=== PATIENT | female | born 1935 | race Caucasian/White ===

== ENCOUNTER 2022-12-28 23:51 | Inpatient (IN) | payer OTHER ==
[~2022-12-28] VITALS: Ht 157.5 cm; Wt 48.5 kg
--- NOTE | 2022-12-29 00:10 | NUR ---
[facility] FROM [facility] C/C COFFEE GROUND EMESIS X1 1HR AGO. PT IS AOX0. OPENS EYES, WITHDRAWS TO PAIN BUT NOT RESPONDING TO VERBAL COMMAND. ATTACHED TO MONITOR. VITALS CHECKED.
--- NOTE | 2022-12-29 00:15 | NUR ---
EKG DONE AT BEDSIDE
[2022-12-29] MEDS ORDERED: PANTOPRAZOLE 40 MG VIAL ONE (00:16)
[2022-12-29] MEDS ORDERED: ONDANSETRON HCL/PF 4 MG/2 ML VIAL ONE (00:16)
[2022-12-29] MEDS ORDERED: IV NS 0.9% 500 ML BAG IV ONE (00:30)
[2022-12-29] MEDS ORDERED: PANTOPRAZOLE 40 MG VIAL IV ONE (00:30)
[2022-12-29] MEDS ORDERED: ONDANSETRON HCL/PF 4 MG/2 ML VIAL IVP ONE (00:30)
--- NOTE | 2022-12-29 00:40 | NUR ---
COVID SWAB DONE AND SENT TO LAB
--- NOTE | 2022-12-29 00:40 | NUR ---
IV NERY G20 INSERTED ON LEFT UPPER ARM. BLOOD DRAWN AND SENT TO LAB
--- NOTE | 2022-12-29 00:40 | NUR ---
XRAY DONE AT BEDSIDE
[2022-12-29 00:49] LABS: BASOPHILS # (AUTO) 0.1 K/uL (0.0-0.2); BASOPHILS % (AUTO) 0.8 % (0.0-2.0); EOSINOPHILS % (AUTO) 0.8 % (0.0-6.0); HEMATOCRIT 41 % (33-45); HEMOGLOBIN 13.3 g/dL (11.5-14.8); LYMPHOCYTES # (AUTO) 1.4 K/uL (0.8-4.8); LYMPHOCYTES % (AUTO) 12.7 % (20.0-44.0); MEAN CORPUSCULAR HGB CONC 33 g/dl (31.0-36.0); MEAN CORPUSCULAR VOLUME 90 fL (82-100); MONOCYTES # (AUTO) 0.5 K/uL (0.1-1.30); MONOCYTES % (AUTO) 4.8 % (2.0-12.0); NEUTROPHILS # (AUTO) 9.1 K/uL (1.8-8.9); NEUTROPHILS % (AUTO) 80.9 % (43.0-81.0); PLATELET COUNT (AUTO) 287 K/uL (150-450); RED BLOOD CELL COUNT(AUTO) 4.52 MIL/uL (4.0-5.2); WHITE BLOOD COUNT (AUTO) 11.3 K/uL (4.3-11.0)
[2022-12-29 01:11] LABS: ALANINE AMINOTRANSFERASE 40 U/L (12-78); ALBUMIN 3.2 g/dL (3.4-5.0); ALKALINE PHOSPHATASE 97 U/L (46-116); ASPARTATE AMINOTRANSFERASE 25 U/L (15-37); BILIRUBIN,DIRECT 0.2 mg/dL (0.0-0.2); BILIRUBIN,TOTAL 0.8 mg/dL (0.2-1.0); CALCIUM, SERUM 9.6 mg/dL (8.5-10.1); CARBON DIOXIDE 28 mmol/L (21-32); CHLORIDE 103 mmol/L (98-107); CREATININE 1.1 mg/dL (0.6-1.3); GLUCOSE 257 mg/dL (74-106); LIPASE 15 U/L (73-393); POTASSIUM 4.1 mmol/L (3.5-5.1); SODIUM SERUM 141 mmol/L (136-145); TOTAL PROTEIN, SERUM 7.6 g/dL (6.4-8.2); UREA NITROGEN, BLOOD 52 mg/dL (7-18)
[2022-12-29 01:17] LABS: EOSINOPHILS % (MANUAL) 1 % (0-4); LYMPHOCYTES % (MANUAL) 16 % (16-48); MONOCYTES % (MANUAL) 4 % (0-11.0); NEUTROPHILS % (MANUAL) 79 (42-76)
--- NOTE | 2022-12-29 01:51 | NUR ---
URINE SPECIMEN SENT TO LAB
[2022-12-29 02:09] LABS: BILIRUBIN,URINE NEGATIVE (NEGATIVE); COLOR,URINE YELLOW (YELLOW); LEUKOCYTE ESTERASE ,URINE TRACE (NEGATIVE); NITRITE, URINE NEGATIVE (NEGATIVE); PROTEIN,URINE TRACE mg/dl (NEGATIVE); UGLUCOSE TRACE mg/dL (NEGATIVE); UROBILINOGEN,URINE 0.2 EU/dL (0.2)
[2022-12-29 02:29] LABS: BACTERIA,URINE Few /HPF (None Seen); RBC,URINE NONE SEEN /HPF (0-2); SQUAMOUS EPITHELIAL CELL,UR None Seen /HPF (None Seen); WBC,URINE 0-2 /HPF (0-3); YEAST,URINE Few /HPF (None Seen)
[2022-12-29 02:30] LABS: MUCUS,URINE Few /LPF (None Seen)
[2022-12-29] MEDS ORDERED: IOHEXOL-300 100 ML VIAL IV ONE (02:52)
[2022-12-29] MEDS ORDERED: CT SWABBABLE VALVE TRANS SET 1 EA INFUS.SET MC ONE (02:52)
[2022-12-29] MEDS ORDERED: IV NS 0.9% 250 ML IV ONE (02:52)
--- NOTE | 2022-12-29 02:58 | NUR ---
BROUGHT TO CT DEPT
[2022-12-29] MEDS ORDERED: Z GUARD REMEDY 4 OZ OINT TP PRN (03:00)
[2022-12-29] MEDS ORDERED: ACETAMINOPHEN 325 MG TABLET PO PRN (03:00)
[2022-12-29] MEDS ORDERED: MAGNESIUM HYDROXIDE 30 ML UDC PO PRN (03:00)
[2022-12-29] MEDS ORDERED: PANTOPRAZOLE 40 MG VIAL IV SCH (03:00)
[2022-12-29] MEDS ORDERED: ONDANSETRON HCL/PF 4 MG/2 ML VIAL IVP PRN (03:00)
--- NOTE | 2022-12-29 04:03 | NUR ---
REPORT GIVEN TO FARAZ DIXON
--- NOTE | 2022-12-29 04:50 | NUR ---
TRANSFERRED TO ROOM VIA ACLS PROTOCOL
--- NOTE | 2022-12-29 05:00 | NUR ---
RN NOTES ADMITTED A 87 Y/O MALE PATIENT FROM ER VIA [facility] WITH DX GI BLEED. VITAL SIGNS TAKEN AND RECORDED AFEBRILE. ON ROOM AIR SATING 96% NO SOB NOT ON RESPIRATORY DISTRESS. SAFELY TRANSFER TO BED. COMPLETE BODY ASSESSMENT DONE. WITH IV ACCESS AT [facility] # 20 PATENT FLSUHES WELL. WITH GT INTACT FLUSHES WELL. ALL SAFETY MEASURES IN PLACE HOOKED TO DEPUTY CHIEF EXECUTIVE. WILL CLOSELY MONITHOR THE PATIENT
[2022-12-29] MEDS: IV 1/2NS 1000 ML 1,000 ML IV PRN ×2 (05:03→21:28)
--- NOTE | 2022-12-29 06:37 | NUR ---
RN NOTES PATIENT REMAINS STABLE NO SIGNIFICANT CHANGES. PATIENT REMAINS STABLE. WILL ENDORSED TO MORNING SHIFT FOR COBY
--- NOTE | 2022-12-29 07:00 | NUR ---
RECEIVED PATIENT REPORT FROM NIGHTSHIFT RN. PATIENT ASLEEP BREATHING EVENLY AND UNLABORED ON ROOM AIR. SINUS RYTHYM ON COIL WINDING SUPERVISOR. IV ACCESS MAINTAINED. PUREWICK ATTACHED. SAFETY MEASURES IMPLEMENTED, WILL CONTINUE PLAN OF CARE AND ANTICIPATE NEEDS.
[2022-12-29 08:00] VITALS: BP 127/68
[2022-12-29] MEDS: PANTOPRAZOLE 40 MG VIAL IV SCH ×2 (08:12→21:26)
[2022-12-29] MEDS ORDERED: BENA10TA74 GT (08:20)
[2022-12-29] MEDS ORDERED: ONDA4TAB5 GT (08:20)
[2022-12-29] MEDS ORDERED: NUT.250L18 GT (08:20)
[2022-12-29] MEDS ORDERED: ACET-868 GT (08:20)
[2022-12-29] MEDS ORDERED: INSU100V7 SQ (08:20)
[2022-12-29] MEDS ORDERED: MEMA10TA56 GT (08:20)
[2022-12-29] MEDS ORDERED: BISA10SU11 RC (08:20)
[2022-12-29] MEDS ORDERED: BISO5TAB20 GT (08:20)
[2022-12-29] MEDS ORDERED: DONE10TA11 GT (08:20)
[2022-12-29] MEDS ORDERED: FERR300L GT (08:20)
[2022-12-29] MEDS ORDERED: NA P133E RC (08:20)
[2022-12-29] MEDS ORDERED: MULT-24 GT (08:20)
[2022-12-29] MEDS ORDERED: INSU100V3 SQ (08:20)
[2022-12-29] MEDS ORDERED: FAMO20TA8 GT (08:20)
[2022-12-29] MEDS ORDERED: MAGN400O6 GT (08:20)
[2022-12-29] MEDS ORDERED: DEXTROSE 50%-WATER 50 ML DISP.SYRIN IV PRN (10:30)
[2022-12-29 12:00] VITALS: BP 128/46
[2022-12-29] MEDS: BLOOD SUGAR DIAGNOSTIC 1 EACH STRIP IN SCH ×2 (12:19→17:21)
--- NOTE | 2022-12-29 12:21 | NUR ---
PRN INSULIN HELD. PATIENT IS NOT RECEIVING TUBE FEEDINGS AT THIS TIME, PROVIDER AWARE.
[2022-12-29 16:00] VITALS: BP 100/46
[2022-12-29 18:21] LABS: HEMOGLOBIN 10.4 g/dL (11.5-14.8)
--- NOTE | 2022-12-29 18:38 | NUR ---
PATIENT LEFT UNIT TO UNDERGO EGD WITH SURGERY TEAM
--- NOTE | 2022-12-29 18:58 | NUR ---
PATIENT CURRENTLY IN OPERATING ROOM. HAND OFF TO BE GIVEN TO DESTINY RUTH FOR CONTINUATION OF CARE.
--- NOTE | 2022-12-29 19:30 | NUR ---
RN NOTES RECEIVED REPORT FROM MORNING RN. PATIENT AT OR FOR HER EGD.
[2022-12-29 20:00] VITALS: BP 121/74
--- NOTE | 2022-12-29 20:05 | NUR ---
RN NOTES PATIENT BACK FROM OR. STILL ON IV ACCESS AT [facility] # 20 PATENT RUNNING 1/2 NS @ 75 CC/HR. GT PATENT STILL ON NPO. ALL SAFETY MEASURES IN PLACE AT ALL TIMES. HOB ELEVATED. CALL LIGHT WITHIN REACH. WILL CLOSELY WITHIN REACH
[2022-12-29] MEDS ORDERED: ANESTHESIA TRAY IN PYXIS 1 EA TRAY MC ONE (20:21)
[2022-12-30] VITALS: BP 125/74
[2022-12-30] MEDS: BLOOD SUGAR DIAGNOSTIC 1 EACH STRIP IN SCH ×5 (01:16→23:28)
[2022-12-30 04:00] VITALS: BP 138/43
--- NOTE | 2022-12-30 06:47 | NUR ---
RN NOTES PATIENT REMAINS STABLE NO SIGNIFICANT CHANGES. PATIENT REMAINS STABLE. WILL ENDORSED TO MORNING SHIFT FOR COBY
[2022-12-30 07:06] LABS: BASOPHILS # (AUTO) 0.1 K/uL (0.0-0.2); BASOPHILS % (AUTO) 0.9 % (0.0-2.0); EOSINOPHILS % (AUTO) 5.2 % (0.0-6.0); HEMATOCRIT 29 % (33-45); HEMOGLOBIN 9.5 g/dL (11.5-14.8); LYMPHOCYTES # (AUTO) 1.4 K/uL (0.8-4.8); LYMPHOCYTES % (AUTO) 22.4 % (20.0-44.0); MEAN CORPUSCULAR HGB CONC 32 g/dl (31.0-36.0); MEAN CORPUSCULAR VOLUME 92 fL (82-100); MONOCYTES # (AUTO) 0.4 K/uL (0.1-1.30); MONOCYTES % (AUTO) 6.6 % (2.0-12.0); NEUTROPHILS % (AUTO) 64.9 % (43.0-81.0); PLATELET COUNT (AUTO) 184 K/uL (150-450); WHITE BLOOD COUNT (AUTO) 6.2 K/uL (4.3-11.0)
[2022-12-30 07:22] LABS: CALCIUM, SERUM 8.1 mg/dL (8.5-10.1); CARBON DIOXIDE 25 mmol/L (21-32); CHLORIDE 111 mmol/L (98-107); CREATININE 0.8 mg/dL (0.6-1.3); GLUCOSE 149 mg/dL (74-106); MAGNESIUM 1.9 mg/dL (1.8-2.4); PHOSPHORUS 2.4 mg/dL (2.5-4.9); POTASSIUM 3.3 mmol/L (3.5-5.1); SODIUM SERUM 142 mmol/L (136-145); UREA NITROGEN, BLOOD 27 mg/dL (7-18)
[2022-12-30 08:00] VITALS: BP 120/42
--- NOTE | 2022-12-30 08:25 | NUR ---
RN NOTE O2 SAT 90% ON RA. PT PLACED ON 2L O2 NC, SAT 96%.
[2022-12-30] MEDS: PANTOPRAZOLE 40 MG/PACK PACK GT SCH ×2 (08:34→21:35)
[2022-12-30] MEDS: GLUCERNA 1.2 1,000 ML BOTTLE NG PRN (09:00)
--- NOTE | 2022-12-30 09:09 | NUR ---
RN NOTE TUBE FEEDING INITIATED AT 20MLS/HR. GOAL OF 60MLS/HR.
[2022-12-30] MEDS ORDERED: POTASSIUM CHLORIDE 20 MEQ POWDER PACKET GT ONE (10:00)
[2022-12-30 12:00] VITALS: BP 134/72
--- NOTE | 2022-12-30 13:00 | NUR ---
RN NOTE NO RESIDUAL, GT FEEDING INCREASED TO 30 MLS/HR
[2022-12-30] MEDS ORDERED: MAGNESIUM HYDROXIDE 30 ML UDC GT PRN (15:25)
[2022-12-30] MEDS ORDERED: ACETAMINOPHEN 650 MG/20.3 ML UDC GT PRN (15:30)
[2022-12-30] MEDS ORDERED: NEUTRA PHOS 1 POWD.PACKET GT ONE (15:30)
[2022-12-30] MEDS ORDERED: ACETAMINOPHEN 650 MG/20.3 ML UDC PO PRN (15:30)
[2022-12-30 16:00] VITALS: BP 118/63
--- NOTE | 2022-12-30 16:13 | NUR ---
RN NOTE PT CONTINUOUSLY REMOVING NC. O2 SAT STABLE AROUND 92% WITHOUT SUPPLEMENTAL OXYGEN. PT CONFUSED, UNABLE TO UNDERSTAND NEED TO KEEP HER NC ON.
[2022-12-30] MEDS: INSULIN REGULAR, HUMAN 100 UNIT/ML 3 ML VIAL SQ PRN ×2 (17:24→23:40)
[2022-12-30] MEDS: METOCLOPRAMIDE HCL 10 MG/2 ML VIAL IV SCH (18:16)
--- NOTE | 2022-12-30 18:25 | NUR ---
RN NOTE NO RESIDUAL NOTED, GT FEEDING INCREASED TO 40 MLS/HR
--- NOTE | 2022-12-30 19:30 | NUR ---
HAND ALTERATIONS SEAMSTRESS OPENING NOTE RECEIVED PATIENT FROM AM NURSE; PATIENT IS A/O X 1, CONFUSED AND UNABLE TO SPEAK; PATIENT REFUSING OXYGEN VIA NASAL CANNULA BUT CURRENTLY STABLE ON ROOM AIR, TOLERATING WELL AND NO S/S OF DISTRESS NOTED; WITH IV ACCESS ON LEFT UA G#20 ON TKO; WITH G TUBE IN PLACE INFUSING GLUCERNA AT 40 ML/HR, GOAL IS 60 ML/HR; HOOKED TO TELE MONITORING; SAFETY MEASURES IMPLEMENTED, BED LOCKED IN LOWEST POSITION, SIDE RAILS UP X 3, CALL LIGHT AND TABLE WITHIN REACH; WILL CONTINUE TO MONITOR THROUGHOUT SHIFT
[2022-12-30 20:00] VITALS: BP 131/90
[2022-12-31] VITALS: BP 122/63
[2022-12-31 04:00] VITALS: BP 143/89
[2022-12-31] MEDS: GLUCERNA 1.2 1,000 ML BOTTLE NG PRN (04:03)
[2022-12-31] MEDS: BLOOD SUGAR DIAGNOSTIC 1 EACH STRIP IN SCH ×4 (05:43→23:39)
[2022-12-31] MEDS: INSULIN REGULAR, HUMAN 100 UNIT/ML 3 ML VIAL SQ PRN ×3 (05:52→23:30)
[2022-12-31 06:21] LABS: BASOPHILS % (AUTO) 0.7 % (0.0-2.0); EOSINOPHILS % (AUTO) 6.1 % (0.0-6.0); HEMATOCRIT 29 % (33-45); HEMOGLOBIN 9.8 g/dL (11.5-14.8); LYMPHOCYTES # (AUTO) 1.4 K/uL (0.8-4.8); LYMPHOCYTES % (AUTO) 26.2 % (20.0-44.0); MEAN CORPUSCULAR HGB CONC 34 g/dl (31.0-36.0); MEAN CORPUSCULAR VOLUME 89 fL (82-100); MONOCYTES # (AUTO) 0.4 K/uL (0.1-1.30); MONOCYTES % (AUTO) 6.8 % (2.0-12.0); NEUTROPHILS # (AUTO) 3.2 K/uL (1.8-8.9); NEUTROPHILS % (AUTO) 60.2 % (43.0-81.0); PLATELET COUNT (AUTO) 201 K/uL (150-450); RED BLOOD CELL COUNT(AUTO) 3.29 MIL/uL (4.0-5.2); WHITE BLOOD COUNT (AUTO) 5.3 K/uL (4.3-11.0)
[2022-12-31 06:43] LABS: CALCIUM, SERUM 8.5 mg/dL (8.5-10.1); CARBON DIOXIDE 24 mmol/L (21-32); CHLORIDE 109 mmol/L (98-107); CREATININE 0.7 mg/dL (0.6-1.3); GLUCOSE 187 mg/dL (74-106); PHOSPHORUS 3.2 mg/dL (2.5-4.9); POTASSIUM 3.8 mmol/L (3.5-5.1); SODIUM SERUM 142 mmol/L (136-145); UREA NITROGEN, BLOOD 20 mg/dL (7-18)
--- NOTE | 2022-12-31 06:52 | NUR ---
TOXICOLOGY SUPERVISOR CLOSING NOTE PATIENT IS A/O X 1, CONFUSED AND UNABLE TO SPEAK BUT RESPONDS WHEN CALLED BY NAME; PATIENT REFUSING OXYGEN VIA NASAL CANNULA BUT STABLE ON ROOM AIR, TOLERATING WELL SATURATING TO 95% TO 98% AND NO S/S OF DISTRESS NOTED; WITH IV ACCESS ON LEFT UA G#20 SALINE LOCK, INTACT AND FLUSHING WELL; WITH G TUBE IN PLACE INFUSING GLUCERNA AT 50 ML/HR, NO RESIDUAL NOTED, GOAL IS 60 ML/HR; HOOKED TO TELE MONITORING CURRENTLY READING SR 70S BPM; ADMINISTERED MEDICATIONS PRESCRIBED; PATIENT'S NEEDS ATTENDED; MONITORED PATIENT ACCORDINGLY; SAFETY MEASURES IMPLEMENTED, BED LOCKED IN LOWEST POSITION, SIDE RAILS UP X 3, CALL LIGHT AND TABLE WITHIN REACH; WILL ENDORSE TO AM NURSE FOR COBY.
--- NOTE | 2022-12-31 07:29 | NUR ---
CLUB FORMER OPENING NOTE RECEIVED PATIENT IN BED, AWAKE. A/O X 1, CONFUSED. ON ROOM AIR, TOLERATING WELL. IV ACCESS ON LEFT UA #20G, SL. WITH G TUBE IN PLACE ONGOING GLUCERNA AT 50 ML/HR. ON TELE MONITOR WITH CURRENT READING SR-70. SAFETY MEASURES IMPLEMENTED: BED LOCKED IN LOWEST POSITION, SIDE RAILS UP X 3, CALL LIGHT AND TRAY TABLE WITHIN REACH. WILL CONTINUE TO MONITOR.
[2022-12-31 08:00] VITALS: BP 151/53
[2022-12-31] MEDS: PANTOPRAZOLE 40 MG/PACK PACK GT SCH ×2 (09:07→21:20)
[2022-12-31] MEDS: METOCLOPRAMIDE HCL 10 MG/2 ML VIAL IV SCH ×3 (09:08→17:00)
[2022-12-31 12:00] VITALS: BP 128/78
[2022-12-31 16:00] VITALS: BP 129/62
--- NOTE | 2022-12-31 19:33 | NUR ---
MERCHANDISE HANDLER CLOSING NOTE PATIENT RESTING IN BED. A/O X 1, CONFUSED. ON ROOM AIR, TOLERATING WELL. IV ACCESS ON LEFT UA #20G, SL. WITH G TUBE IN PLACE ONGOING GLUCERNA AT 50 ML/HR. ON TELE MONITOR WITH CURRENT READING SR-70. NEEDS ATTENDED. NO N/V WITHIN THE SHIFT. SAFETY MEASURES IMPLEMENTED: BED LOCKED IN LOWEST POSITION, SIDE RAILS UP X 3, CALL LIGHT AND TRAY TABLE WITHIN REACH. WILL ENDORSE COBY TO POTATO CHIP FRIER.
--- NOTE | 2022-12-31 19:35 | NUR ---
SALES CLERK SUPERVISOR OPENING NOTE RECEIVED PATIENT AWAKE RESTING IN BED. A/O X 1, CONFUSED. ON ROOM AIR, TOLERATING WELL. NO SOB, NOTED TO BE BREATHING EVENLY AND UNLABORED. IV ACCESS ON LEFT UA #20G, SALINE LOCK NOTED TO BE PATENT AND INTACT. WITH G TUBE IN PLACE NOTED TO BE CLEAN AND DRESSING IS INTACT FREE FROM SIGNS OF INFECTION ONGOING FEEDING GLUCERNA 1.2 AT 55 ML/HR PATIENT TOLERATING WELL. RESIDUAL 5CC NOTED. ON TELE MONITOR WITH CURRENT READING SR-72BPM. ON PUREWICK NOTED TO BE IN PLACED DRAINING CLEAR YELLOW URINE. SAFETY MEASURES IMPLEMENTED: BED LOCKED IN LOWEST POSITION, SIDE RAILS UP X 3, CALL LIGHT AND TRAY TABLE WITHIN REACH.
[2022-12-31 20:00] VITALS: BP 124/41
[2023-01-01] VITALS: BP 129/50
[2023-01-01 04:00] VITALS: BP 124/60
[2023-01-01] MEDS: BLOOD SUGAR DIAGNOSTIC 1 EACH STRIP IN SCH ×2 (05:41→11:20)
--- NOTE | 2023-01-01 06:35 | NUR ---
MANAGER FINANCIAL CLOSING NOTE PATIENT IN BED AWAKE RESTING. A/O X 1, CONFUSED. ON ROOM AIR, TOLERATING WELL. NO SOB, NOTED TO BE BREATHING EVENLY AND UNLABORED. IV ACCESS ON LEFT UA #20G, SALINE LOCK NOTED TO BE PATENT AND INTACT. WITH G TUBE IN PLACE NOTED TO BE CLEAN AND DRESSING IS INTACT FREE FROM SIGNS OF INFECTION ONGOING FEEDING GLUCERNA 1.2 AT 55 ML/HR PATIENT TOLERATING WELL. RESIDUAL 5CC NOTED. ON TELE MONITOR WITH CURRENT READING SR-72BPM. ON PUREWICK NOTED TO BE IN PLACED DRAINING CLEAR YELLOW URINE OUTPUT. ALL DUE MEDICATION GIVEN. ALL NEEDS ARE MET. MADE SURE PATIENT IS KEPT CLEAN AND COMFORTABLE. NO SIGNS OF PAIN OR DISTRESS AT THE MOMENT. REPOSITIONED Q2H THROUGH OUT THE SHIFT. SAFETY MEASURES IMPLEMENTED: BED LOCKED IN LOWEST POSITION, SIDE RAILS UP X 3, CALL LIGHT AND TRAY TABLE WITHIN REACH. WILL ENDORSE TO NEXT SHIFT NURSE FOR CONTINUITY OF CARE.
[2023-01-01 07:29] LABS: BASOPHILS % (AUTO) 0.5 % (0.0-2.0); EOSINOPHILS % (AUTO) 4.3 % (0.0-6.0); HEMATOCRIT 32 % (33-45); HEMOGLOBIN 10.6 g/dL (11.5-14.8); LYMPHOCYTES # (AUTO) 1.8 K/uL (0.8-4.8); LYMPHOCYTES % (AUTO) 21.7 % (20.0-44.0); MEAN CORPUSCULAR HGB CONC 33 g/dl (31.0-36.0); MEAN CORPUSCULAR VOLUME 94 fL (82-100); MONOCYTES # (AUTO) 0.5 K/uL (0.1-1.30); MONOCYTES % (AUTO) 5.8 % (2.0-12.0); NEUTROPHILS # (AUTO) 5.6 K/uL (1.8-8.9); NEUTROPHILS % (AUTO) 67.7 % (43.0-81.0); PLATELET COUNT (AUTO) 212 K/uL (150-450); RED BLOOD CELL COUNT(AUTO) 3.47 MIL/uL (4.0-5.2); WHITE BLOOD COUNT (AUTO) 8.3 K/uL (4.3-11.0)
--- NOTE | 2023-01-01 07:30 | NUR ---
LITHOGRAPH PRINTER AM NOTE RECEIVED PATIENT AWAKE RESTING IN BED. A/O X 1, CONFUSED. ON ROOM AIR, TOLERATING WELL. NO SOB, NOTED TO BE BREATHING EVENLY AND UNLABORED. SR HR 70 ON MONITOR, NO SIGNS OF PAIN OR GRIMACINGS. IV ACCESS ON LEFT UA #20G, SALINE LOCK NOTED TO BE PATENT AND INTACT. G TUBE CHECKED FOR PLACEMENT, O RESIDUAL, CDI DRESSING, GLUCERNA 1.2 AT 55 ML/HR INFUSING , WELL TOLERATED. PUREWICK IN PLACE., NO SKIN ISSUES. SAFETY MEASURES IMPLEMENTED: BED LOCKED IN LOWEST POSITION, SIDE RAILS UP X 3, CALL LIGHT AND TRAY TABLE WITHIN REACH.WILL CONT TO MONITOR.
[2023-01-01 07:41] LABS: CARBON DIOXIDE 26 mmol/L (21-32); CHLORIDE 110 mmol/L (98-107); CREATININE 0.8 mg/dL (0.6-1.3); GLUCOSE 137 mg/dL (74-106); POTASSIUM 4.1 mmol/L (3.5-5.1); SODIUM SERUM 143 mmol/L (136-145); UREA NITROGEN, BLOOD 22 mg/dL (7-18)
[2023-01-01 08:00] VITALS: BP 158/98
[2023-01-01] MEDS ORDERED: PANT40TA2 GT (08:27)
[2023-01-01] MEDS: PANTOPRAZOLE 40 MG/PACK PACK GT SCH (08:51)
[2023-01-01] MEDS: METOCLOPRAMIDE HCL 10 MG/2 ML VIAL IV SCH (08:51)
[2023-01-01] MEDS: INSULIN REGULAR, HUMAN 100 UNIT/ML 3 ML VIAL SQ PRN (11:31)
[2023-01-01 12:00] VITALS: BP 144/100
--- NOTE | 2023-01-01 12:00 | NUR ---
RN NOTES CALLED ANGELINA OLMEDO [facility] [phone] TWICE TO GIVE REPORT. NO ONE ANSWERING AT NURSE STATION OR UIT WHERE PATIENT IS GOING. SPOKE WITH TRAV REINSPECTOR THAT PATIENT IS GONNA BE PICKED UP AT 1230 BY AMBULANCE, PER HER JUST SEND THE PATIENT SINCE NO ANSWER.
--- NOTE | 2023-01-01 12:45 | NUR ---
RN NOTES BP 144/100, PER DR. JANEEN LI, HYDRALAZINE 10 MG IV X 1 NOW
[2023-01-01 12:47] VITALS: BP 144/100
[2023-01-01] MEDS ORDERED: hydrALAZINE HCL IV 20 MG VIAL IV ONE (13:00)
--- NOTE | 2023-01-01 13:18 | NUR ---
RN NOTES PATIENT DISCHARGED TO [facility] TODAY PER MD IN STABLE CONDITION. PROVIDED DC INSTRUCTION, HEALTH TEACHINGS AND MED RECON LIST. PATIENT TO FOLLOW [facility] WITH PCP IN 1 WEEK OR PER FACILITY PROTOCOL. ENOCH IV ACCESS, REMOVED, CATH TIP COMPLETE, APPLIED PRESSURE AND DRESSING, NO BLEEDING. NO BELONGINGS. ALL PAPERWORKS SIGNED. REPOST GIVEN TO ISAMAR AT NURSING FACILITY. PATIENT PICKED UP BY 2 AMBULANCE CREW AND WILL TRANSPORT PATIENT TO SNF.
== END 2023-01-01 13:26 | DRG 392 ==
LOC: ER 12-29 00:08 → TELE1 12-29 04:19
PROVIDERS: ADMIT Nurse Practitioner Acute Care; ATTEND Nurse Practitioner Acute Care
PROC: 0DB68ZX Excision of Stomach, Via Natural or Artificial Opening Endoscopic, Diagnostic (ICD-10-PCS; principal; 2022-12-29)
DX: K29.70 Gastritis, unspecified, without bleeding (principal); K92.0 Hematemesis; D68.59 Other primary thrombophilia; G93.40 Encephalopathy, unspecified; K21.00 Gastro-esophageal reflux disease with esophagitis, without bleeding; E78.5 Hyperlipidemia, unspecified; K44.9 Diaphragmatic hernia without obstruction or gangrene; R13.10 Dysphagia, unspecified; Z20.822 Contact with and (suspected) exposure to COVID-19; F02.80 Dementia in other diseases classified elsewhere, unspecified severity, without behavioral disturbance, psychotic disturbance, mood disturbance, and anxiety; G30.9 Alzheimer's disease, unspecified; Z93.1 Gastrostomy status; K57.30 Diverticulosis of large intestine without perforation or abscess without bleeding; E11.65 Type 2 diabetes mellitus with hyperglycemia; Z74.09 Other reduced mobility; E87.6 Hypokalemia; D63.8 Anemia in other chronic diseases classified elsewhere; R79.89 Other specified abnormal findings of blood chemistry; I10 Essential (primary) hypertension; J44.9 Chronic obstructive pulmonary disease, unspecified
CPT/HCPCS: 36415; 71045-TC; 80048-TC; 80076-TC; 81001; 82962-TC; 83690-TC; 83735-TC; 84100-TC; 84484-TC; 85025-TC; 85027-TC; 86850-TC; 87081-TC; A4223; C9113; C9803; G0378; J0360; J1815; J2405; J2704; J2765; J3490; J7030; J7040; J7050; Q9967